=== PATIENT | female | born 1990 | race Caucasian/White ===

== ENCOUNTER → 2018-09-20 07:42 | Outpatient (CLI) | payer BC, SELFPAY ==
--- NOTE | 2018-09-20 07:45 | US_ITS ---
US abdomen complete HISTORY: Abdominal pain ITS.REASON: REFLUX,DHO ORDERING PHYSICIAN: Veronica Gomez APRN PATIENT AGE: 27 years COMPARISON: None FINDINGS: PANCREAS:Unremarkable. No obvious mass or abnormal fluid collection. No ductal dilatation LIVER:No focal liver lesions demonstrated. Homogeneous echogenicity. No intrahepatic biliary ductal dilatation evident RIGHT KIDNEY:Unremarkable. Normal size and echogenicity. No hydronephrosis LEFT KIDNEY:Unremarkable. No hydronephrosis. Normal size and echogenicity. GALLBLADDER:No gallstones, gallbladder wall thickening, pericholecystic fluid, or biliary dilatation. There is some layering sludge within the gallbladder. AORTA:No evidence of aneurysmal dilatation. SPLEEN:Unremarkable. Normal size and echogenicity ASCITES:None demonstrated. IMPRESSION: Layering sludge within the gallbladder of questionable clinical significance. No gallstones. Otherwise negative
== END ==
PROVIDERS: PCP Nurse Practitioner Family; Visit Provider Nurse Practitioner Family
DX: K21.9 Gastro-esophageal reflux disease without esophagitis (principal)
CPT/HCPCS: 76700

== ENCOUNTER 2018-09-28 10:32 | Day surgery (SDC) | payer BC, SELFPAY ==
[2018-09-25 12:43] VITALS: BMI 30.2
[2018-09-28 10:46] VITALS: BP 122/83; PULSE 83; RESP 18; TEMP 36.6; O2SAT 97
[2018-09-28 11:03] VITALS: O2SAT 98
--- NOTE | 2018-09-28 11:08 | HMH.ANESCL ---
[facility] Anesthesia Checklist - Patient Identification Patient Identification: Arm Band, Verbal (Name & ) - Structural Data Admitted From: Home Planned Operative Procedure/s: EGD Consent for Planned Operative Procedure(s) Verified: Yes Verified Documents: Surgical Consent, History and Physical - NPO Status Verified Time NPO: 00:00 - Additional verifications Anesthesia Reactions: No - Airway Assessment C-Spine Mobility Assessed: Yes TMJ Mobility Assessed: Yes Dentition: Partials - Neurological Assessment Level of Consciousness: Awake, Alert, Appropriate, Follows Commands Hx Seizures: No Numbness or tingling in extremities: No - Anesthesia Plan Anesthesia Risk discussed: Yes Anesthesia Plan: Verified ASA Class: II Anesthesia Type: MAC [facility] History I have reviewed the patient's past medical history: Yes Medical History: Reports:: Arrhythmia, Gastroesophageal Reflux Disease(GERD), Hypertension, Lung Disease (smoker) Denies:: Diabetes Mellitus Type 1, Diabetes Mellitus Type 2, Internal Pacemaker, Seizures *Have you ever received a pneumonia vaccine?: No (NA) *Have you received a flu vaccine this season?: No (NA) Other Medical History: Reports: Anemia Other Surgeries: Yes: Appendectomy, , Dilation and Curettage, Hysterectomy-Partial. No: Pacemaker Amputation: No Fractures: No - *Social History Smoking Status: Current every day smoker Tobacco Type: cigarettes Alcohol Intake: never *Occupational Status:: other (Unknown) *Travel in the last 8 weeks: None (Unknown) Family Hx:: Unable to obtain
--- NOTE | 2018-09-28 11:23 | HMH.PROC ---
[facility] Procedure Note Procedure Note:: Upper Endoscopy Procedure Report: Esophagogastroduodenoscopy with cold biopsies and TTS balloon dilation Endoscopost: Jose Sapp II, MD Referring Physician: LAKESHA Patel Date of Procedure: September 28, 2018 Equipment: Olympus GIF 180 standard upper endoscope Sedation: MAC sedation Indications: Mrs. Mulligan is a 27-year-old female who is here for diagnostic upper endoscopy. She has had long-standing dyspepsia with epigastric abdominal pain and discomfort. She reports heartburn and reflux. She has had bloating, nausea, early satiety and some belching. She does have occasional dysphagia and globus sensation. Often certain foods exacerbate her symptoms. She does have some bowel irregularity with constipation that alternates with diarrhea. She has had several upper endoscopies here at [facility] with other providers. The patient has had some coughing and chest tightness. She is a smoker. She did have appendectomy and 2012 and hysterectomy (partial) in 2016. The patient does take diclofenac p.o. twice daily, gabapentin and Effexor. Procedure: Prior to the procedure, a history and physical exam was performed, and patient's medications and allergies were reviewed. The risks, benefits and alternatives of the sedation and procedure were discussed with the patient. All questions were answered and informed consent was obtained. The patient was brought to the procedure room. Patient identification and proposed procedure were verified by the physician and the nurse. The patient was placed in a left lateral decubitus position and the scope was passed under direct vision. Throughout the procedure, the patient's blood pressure, pulse, and oxygen saturations were monitored continuously. The upper GI endoscopy was accomplished without difficulty. The patient tolerated the procedure well. Findings: The scope was passed directly into the upper esophagus and advanced to the third portion of the duodenum. The post bulbar duodenum and duodenal bulb were normal with normal mucosa and conniventes. The scope was withdrawn through a normal duodenal bulb and pylorus into the stomach. There was evidence of linear reactive gastropathy of the antrum and body of the stomach and biopsies were taken from the antrum. The remainder of the antrum, body and fundus of the stomach were grossly normal. Upon retroflexion there was no hiatal hernia. There was mild gastric atrophy of the fundus. 2 biopsies were taken in the fundus of the stomach. The scope was then withdrawn into the esophagus. There was no evidence of reflux esophagitis or Gonzalez's. There were tertiary contractions and mild esophageal dysmotility. The remainder of the esophageal mucosa was normal. Impression: 1. Nonerosive GERD with mild esophageal dysmotility 2. Mild linear reactive gastropathy and mild gastric atrophy Plan: I will follow up the biopsies. 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 I will discuss dietary measures and treatment options.
[2018-09-28 11:25] VITALS: BP 126/80; PULSE 80; RESP 16; TEMP 36.6; O2SAT 97
[2018-09-28 11:35] VITALS: BP 119/75; PULSE 84; RESP 16; O2SAT 98
[2018-09-28 11:45] VITALS: BP 122/77; PULSE 71; RESP 16; O2SAT 100
[2018-09-28 11:55] VITALS: BP 117/81; PULSE 71; RESP 16; O2SAT 100
== END 2018-09-28 12:00 | disposition home or self-care (01) ==
LOC: OUTP 10:32
PROVIDERS: PCP Nurse Practitioner Family; Visit Provider Internal Medicine Gastroenterology
PROC: 0DJ08ZZ Inspection of Upper Intestinal Tract, Via Natural or Artificial Opening Endoscopic (ICD-10-PCS; CPT 43235; principal; 2018-09-28 12:00)
DX: K21.9 Gastro-esophageal reflux disease without esophagitis; K31.9 Disease of stomach and duodenum, unspecified; K29.40 Chronic atrophic gastritis without bleeding; Z79.899 Other long term (current) drug therapy; Z72.0 Tobacco use
CPT/HCPCS: 43239; C1726

== ENCOUNTER → 2018-11-26 10:16 | Outpatient (POV) | payer BC, SELFPAY | PROVIDERS: PCP Nurse Practitioner Family; Visit Provider Nurse Practitioner Family | DX: Z00.00 Encounter for general adult medical examination without abnormal findings (principal) ==

== ENCOUNTER → 2018-12-10 13:29 | Outpatient (CLI) | payer BC, SELFPAY ==
--- NOTE | 2018-12-10 13:30 | US_ITS ---
US transvaginal HISTORY: ITS.REASON: PELVIC PAIN ORDERING PHYSICIAN: Freddy Allred MD PATIENT AGE: 28 years Comparison: None FINDINGS: Prior hysterectomy. The vaginal cuff has an unremarkable appearance. No fluid in the pelvis Right ovary is 2.8 x 1.9 cm and has an unremarkable appearance. Left ovary is 2.5 x 1.5 cm and also has an unremarkable appearance. IMPRESSION: Prior hysterectomy otherwise unremarkable pelvic ultrasound
== END ==
PROVIDERS: PCP Nurse Practitioner Family; Visit Provider Obstetrics & Gynecology
DX: R10.2 Pelvic and perineal pain (principal)
CPT/HCPCS: 76830

== ENCOUNTER → 2019-01-01 16:11 | Outpatient (CLI) | payer BC, SELFPAY ==
[2019-01-01 16:16] LABS: Microscopic, Urine URINE MICROSCOPIC (MICROSCOPIC)
[2019-01-01 16:35] LABS: Basophils % 0.3 % (0.1-2.0); Eosinophils # 0.2 K/mm3 (0.0-0.4); Eosinophils % 1.6 % (0.1-12.0); Hematocrit 38.2 % (37.0-47.0); Hemoglobin 12.3 g/dL (12.2-16.2); Lymphocytes # 3.5 K/mm3 (0.7-4.5); Lymphocytes % 27.6 % (10-50); Mean Corpuscular HGB Conc 32.2 g/dL (31.8-35.4); Mean Corpuscular Hemoglobin 28.2 pg (27.0-31.2); Mean Corpuscular Volume 87.5 fl (81-99); Mean Platelet Volume 7.9 fl (7.4-10.4); Monocytes # 0.5 K/mm3 (0.1-1.0); Monocytes % 3.9 % (1.7-9.3); Neutrophils # 8.6 K/mm3 (1.8-7.8); Neutrophils % 66.7 % (37.0-80.0); Platelet Count 291 K/mm3 (142-424); Red Blood Count 4.37 M/mm3 (4.20-5.40); Red Cell Distribution Width 12.5 % (11.5-17.5); White Blood Count 12.9 K/mm3 (4.8-10.8)
[2019-01-01 16:58] LABS: Appearance,Urine CLEAR (Clear); Bilirubin,Urine Negative (Negative); Blood, Urine Negative (Negative); Color,Urine YELLOW (Yellow); Glucose,Urine (UA) Negative (Negative); Ketones,Urine Negative (Negative); Leukocyte Esterase,Urine Negative (Negative); Nitrate,Urine Negative (Negative); Protein,Urine Negative (Negative); Urobilinogen,Urine 0.2 EU/dl (0.2)
[2019-01-01 18:16] LABS: Bacteria,Urine Trace /lpf; Squamous Epithelial Cell,Urine Occasional #/hpf (0-5); WBC,Urine Occasional #/hpf (0-3)
[2019-01-01 19:07] LABS: Alanine Aminotransferase 18 U/L (12-78); Albumin Level 3.5 gm/dL (3.4-5.0); Alkaline Phosphatase 83 U/L (46-116); Anion Gap 12.1 mEq/L (5-15); Aspartate Amino Transferase 12 U/L (15-37); Bilirubin,Total 0.2 mg/dL (0.2-1.0); Blood Urea Nitrogen 11 mg/dL (7-18); Calcium 8.6 mg/dL (8.5-10.1); Carbon Dioxide 30 mmol/L (21.0-32.0); Chloride 104 mmol/L (98-107); Creatinine,Serum 0.62 mg/dL (0.55-1.02); Estimated Glomerular Filt Rate 115 ml/min (>60); GFR (African American) 140 ML/MIN (>60); Globulin 3.5 gm/dl (1.3-3.2); Glucose 90 mg/dL (74-106); Potassium 4.1 mmoL/L (3.5-5.1); Sodium 142 mmol/L (136-145)
== END ==
PROVIDERS: Visit Provider Obstetrics & Gynecology
DX: Z01.818 Encounter for other preprocedural examination (principal); R10.2 Pelvic and perineal pain; N73.6 Female pelvic peritoneal adhesions (postinfective)
CPT/HCPCS: 36415; 80053; 81001; 85025

== ENCOUNTER → 2019-01-14 11:02 | Outpatient (POV) | payer BC, SELFPAY | PROVIDERS: PCP Nurse Practitioner Family; Visit Provider Nurse Practitioner Family | DX: Z00.00 Encounter for general adult medical examination without abnormal findings (principal) ==

== ENCOUNTER → 2020-07-23 14:01 | Outpatient (CLI) | payer BC, SELFPAY ==
--- NOTE | 2020-07-23 14:06 | US_ITS ---
APPROVED REPORT Exam Type: Ankle to Brachial Index Chemical Cell Changer: Audelia Billings RVT Indications Limb Pain: History of Smoking RLS Pressures/Indices Right Indices Left Indices Brachial 115.00 mmHg Brachial 113.00 mmHg Low Thigh 136.00 mmHg 1.18 Low Thigh 126.00 mmHg 1.10 Calf 130.00 mmHg 1.13 Calf 125.00 mmHg 1.09 Ankle(PT) 136.00 mmHg 1.18 Ankle(PT) 137.00 mmHg 1.19 Ankle(DP) 133.00 mmHg 1.16 Ankle(DP) 147.00 mmHg 1.28 Digit 132.00 mmHg 1.15 Digit 111.00 mmHg 0.97 Findings RT CARON=1.18 LT CARON=1.28 RT TPI=1.15 LT TPI=0.97 Conclusion RT CARON=1.18 LT CARON=1.28 RT TPI=1.15 LT TPI=0.97 No evidence significant arterial disease throughout the right and left lower extremities as evidenced by normal resting PVR waveforms and normal resting indices. Electronically signed by : Carlos Mcclellan MD 07/23/2020 15:52:26
== END ==
PROVIDERS: PCP Nurse Practitioner; Visit Provider Nurse Practitioner
DX: M79.672 Pain in left foot (principal); M79.671 Pain in right foot
CPT/HCPCS: 93923

== ENCOUNTER 2021-10-20 14:30 | Emergency (ER) | payer BC, SELFPAY ==
--- NOTE | 2021-10-20 15:03 | HMH.EDUTC ---
[facility] [place] Disposition Clinical Impression: Pharyngitis Qualifiers: Pharyngitis/tonsillitis etiology: unspecified etiology Qualified Code(s): J02.9 - Acute pharyngitis, unspecified Disposition: Home, Self-Care Condition on Discharge: Good Instructions: Strep Throat, DI for Strep Throat Additional Instructions: Drink plenty of fluids. Take tylenol or ibuprofen for pain or fever. Take the medications as directed. Follow up with your regular doctor. GO TO THE ER FOR ANY WORSENING SYMPTOMS Throw your tooth brush away and get a new one. Don't start the oral steroids until tomorrow, since you had the shot here today. Prescriptions: Amoxicillin [Amoxicillin 875MG Tab] 875 mg PO Q12H #20 tab Transmission Status: Received by [facility] Benzonatate [Benzonatate 100mg cap] 100 mg PO TIDP PRN #30 cap PRN Reason: Cough Transmission Status: Received by [facility] methylPREDNISolone [Medrol] 4 mg PO DIRECTED 6 Days #21 packet Transmission Status: Received by [facility] Referrals: Santa Sol APRN [Primary Care Provider] - Forms: Work/School Release Time of Disposition: 15:36 Medical Decision Making - Medical Records Medical records reviewed: No: I reviewed the patient's medical records. - Maninder Inquiry Pt receiving controlled substance: No Vital Signs: 10/20/21 15:28 10/20/21 15:47 Temperature 98.4 F 98.4 F Temperature Source Oral Pulse Rate 98 H Pulse Rate [Left Radial] 98 H Respiratory Rate 16 16 Blood Pressure 139/83 Blood Pressure [Right Arm] 139/83 Blood Pressure Mean [Right Arm] 101 02 Sat by Pulse Oximetry 96 - Lab Data Lab results reviewed: Yes: I reviewed the patient's lab results. Lab Results 10/20/21 15:06: Group A Strep Rapid Positive A Orders (Tests/Meds): ED MEDICATIONS Discontinued Medications Generic Name Dose Route Start Last Admin Trade Name Freq PRN Reason Stop Dose Admin Ceftriaxone Sodium 1 gm 10/20/21 15:27 10/20/21 15:43 Ceftriaxone 1gm Vial IM 10/20/21 15:28 1 gm ONCE ONE Administration Lidocaine HCl 0 ml 10/20/21 15:27 10/20/21 15:43 Lidocaine 1% 5ml Pf Vial IM 10/20/21 15:28 2 ml ONCE ONE Administration Methylprednisolone Sodium Succinate 125 mg 10/20/21 15:27 10/20/21 15:43 Methylprednisolone Sod Succ 125mg Vial IM 10/20/21 15:28 125 mg ONCE ONE Administration [facility] [place] HPI - General Stated complaint: fever,sore throat Time Seen by Provider: 10/20/21 15:03 - History of Present Illness Provider Complaint: She c/o sore throat for the past 2 days. - Related Data Home Medications Medication Instructions Recorded Confirmed aspirin 325 mg tablet,delayed ea PO 07/06/21 07/06/21 release cetirizine 10 mg tablet 10 mg PO DAILY PRN 07/06/21 07/06/21 clopidogrel 75 mg tablet 75 mg PO DAILY tab 07/06/21 07/06/21 psyllium husk 0.4 gram capsule 0.4 g PO .5 tabs day cap 07/06/21 07/06/21 topiramate 25 mg tablet 25 mg PO DAILY tab 07/06/21 07/06/21 ubrogepant 100 mg tablet 100 mg PO PRN tab 07/06/21 07/06/21 venlafaxine 75 mg capsule,extended 150 mg PO DAILY cap 07/06/21 07/06/21 release 24 hr Previous Rx's Medication Instructions Recorded Amoxicillin [Amoxicillin 875MG 875 mg PO Q12H #20 tab 10/20/21 Tab] Benzonatate [Benzonatate 100mg 100 mg PO TIDP PRN #30 cap 10/20/21 cap] methylPREDNISolone [Medrol] 4 mg PO DIRECTED 6 Days #21 10/20/21 packet Allergies Allergy/AdvReac Type Severity Reaction Status Date / Time brompheniramine Allergy Intermediate I-RASH Verified 10/20/21 15:30 [From Dimetapp DM Cold-Cough (PE)] dextromethorphan Allergy Intermediate I-RASH Verified 10/20/21 15:30 [From Dimetapp DM Cold-Cough (PE)] lemon [LEMON] Allergy Intermediate I-HIVES Verified 10/20/21 15:30 nitrofurantoin Allergy Intermediate I-HIVES Verified 10/20/21 15:30 [From Macrobid] phenylephrine Allergy Interm
[2021-10-20 15:28] VITALS: BP 139/83; PULSE 98; RESP 16; TEMP 36.9; O2SAT 96; BMI 26.6
[2021-10-20 15:47] VITALS: BP 139/83; PULSE 98; RESP 16; TEMP 36.9
[2021-10-20 15:49] LABS: Strep Scrn Group A (Rapid) Positive (Negative)
== END 2021-10-20 15:49 | disposition home or self-care (01) ==
PROVIDERS: Emergency Provider Nurse Practitioner Family; PCP Nurse Practitioner
DX: J02.9 Acute pharyngitis, unspecified (principal); R50.9 Fever, unspecified; Z79.899 Other long term (current) drug therapy
CPT/HCPCS: 87430; 96372; 99212; G0463; J0696

== ENCOUNTER 2022-08-30 19:22 | Emergency (ER) | payer BC, SELFPAY ==
[2022-08-30 19:24] VITALS: BP 109/63; PULSE 109; RESP 17; TEMP 38.4; O2SAT 98; BMI 26.2
[2022-08-30 19:55] LABS: Strep Scrn Group A (Rapid) Positive (Negative)
[2022-08-30 20:00] VITALS: BP 109/55; PULSE 109; O2SAT 97
--- NOTE | 2022-08-30 20:27 | HMH.EDGENADL ---
Discharge Plan Disposition Patient Disposition: Home, Self-Care Condition: Good Chief Complaint: Upper Respiratory Infection Prescriptions Prescriptions: No Action Ubrelvy 100 mg tablet 100 mg PO PRN topiramate 25 mg tablet 25 mg PO DAILY Label Comments: TAKE 1 TABLET BY MOUTH ONCE DAILY AT BEDTIME clopidogrel 75 mg tablet 75 mg PO DAILY Label Comments: TAKE 1 TABLET BY MOUTH ONCE DAILY aspirin 325 mg tablet,delayed release (DR/EC) PO Label Comments: TAKE 1 TABLET BY MOUTH ONCE DAILY cetirizine [24Hour Allergy] 10 mg tablet 10 mg PO DAILY PRN psyllium husk [Metamucil] 0.4 gram capsule 0.4 g PO .5 tabs day venlafaxine 75 mg capsule,extended release 24hr 150 mg PO DAILY amoxicillin 875 MG tablet 875 mg PO Q12H Qty: 20 0RF benzonatate 100 MG capsule 100 mg PO TIDP PRN (Reason: Cough) Qty: 30 0RF methylprednisolone 4 MG tablets,dose pack 4 mg PO DIRECTED 6 Days Qty: 21 0RF Referrals Follow up/Referrals: Santa Sol APRN [Primary Care Provider] - See instructions Activity Restrictions/Add. Instructions Additional Instructions/Restrictions: At this time was felt you are safe to be discharged home. If new or worsening symptoms please do not hesitate to return the emergency department. Clinical Impressions Clinical Impression: Strep pharyngitis Discharge ED Provider: Prachi Mercedes General Adult HPI General Chief complaint: Upper Respiratory Infection Stated complaint: sore throat Time Seen by Provider: 08/30/22 20:20 Mode of Arrival: Ambulatory Source of Information: Patient Limitations: No Limitations Description of Symptoms (Recalled from ER Triage Doc. by RN): 31 F presents from home with c/o sore throat and fever. Reports she woke up this AM with a scratchy throat. Throughout today it has gotten worse with pain while swallowing, redness, swelling, and increased fever. Last dose of Ibuprofen at 1820. History of Present Illness HPI narrative: Patient is a 31-year-old female with past medical history of previous tonsillectomy, previous multiple strep infections who presents emergency department for evaluation of sore throat, runny nose. Onset was acute, over the last 24 hours. Adequate p.o. intake and urine output. Symptoms refractory to ibuprofen at home. No other acute complaints at this time. Related Data Home Medications Medication Instructions Recorded Confirmed aspirin 325 mg tablet,delayed ea PO 07/06/21 07/06/21 release cetirizine 10 mg tablet (24Hour 10 mg PO DAILY PRN 07/06/21 07/06/21 Allergy) clopidogrel 75 mg tablet 75 mg PO DAILY 07/06/21 07/06/21 psyllium husk 0.4 gram capsule 0.4 g PO .5 tabs day 07/06/21 07/06/21 (Metamucil) topiramate 25 mg tablet 25 mg PO DAILY 07/06/21 07/06/21 ubrogepant 100 mg tablet (Ubrelvy) 100 mg PO PRN 07/06/21 07/06/21 venlafaxine 75 mg capsule,extended 150 mg PO DAILY Anxiety 07/06/21 07/06/21 release 24 hr Previous Rx's Medication Instructions Recorded amoxicillin 875 mg tablet 875 mg PO Q12H #20 tabs 10/20/21 benzonatate 100 mg capsule 100 mg PO TIDP PRN Cough #30 caps 10/20/21 methylprednisolone 4 mg tablets in 4 mg PO DIRECTED 6 days #21 10/20/21 a dose pack packets Allergies Allergy/AdvReac Type Severity Reaction Status Date / Time brompheniramine Allergy Intermediate I-RASH Verified 10/20/21 15:30 [From Dimetapp DM Cold-Cough (PE)] dextromethorphan Allergy Intermediate I-RASH Verified 10/20/21 15:30 [From Dimetapp DM Cold-Cough (PE)] lemon [LEMON] Allergy Intermediate I-HIVES Verified 10/20/21 15:30 nitrofurantoin Allergy Intermediate I-HIVES Verified 10/20/21 15:30 [From Macrobid] phenylephrine Allergy Intermediate I-RASH Verified 10/20/21 15:30 [From Dimetapp DM Cold-Cough (PE)] [facility] Disclaimer: The information contained in this section may have been updated after the patient was s
[2022-08-30 21:11] VITALS: BP 126/78; PULSE 90; RESP 20; TEMP 36.8; O2SAT 98
== END 2022-08-30 21:12 | disposition home or self-care (01) ==
PROVIDERS: Emergency Provider Student in an Organized Health Care Education/Training Program; PCP Nurse Practitioner
DX: J02.0 Streptococcal pharyngitis (principal); F17.210 Nicotine dependence, cigarettes, uncomplicated
CPT/HCPCS: 87430; 96372; 99283; 99284; J0561

== ENCOUNTER 2022-09-06 08:28 | Emergency (ER) | payer BC, SELFPAY ==
[2022-09-06 08:40] VITALS: BP 127/81; PULSE 87; RESP 20; TEMP 36.8; O2SAT 100; BMI 26.2
--- NOTE | 2022-09-06 08:49 | CT_ITS ---
FINAL REPORT TECHNIQUE: Axial images through the neck soft tissue was performed with IV contrast. Sagittal and coronal reformatted images were obtained and reviewed. This study was performed with techniques to keep radiation doses as low as reasonably achievable (ALARA). Individualized dose reduction techniques using automated exposure control or adjustment of mA and/or kV according to the patient's size were employed. CLINICAL HISTORY: swelling, difficulty swallowing - strep 1 week ago, sore throat, fever, chills FINDINGS: CT NECK WITH CONTRAST There is bilateral tonsillar enlargement, right greater than left most likely due to tonsillitis. There is mild edema and adenopathy in the peritonsillar regions. There is mild reactive adenopathy in the posterior triangles. Salivary glands are normal. Larynx is unremarkable. Thyroid gland is unremarkable. There is no abscess. IMPRESSION: Bilateral tonsillar enlargement with mild soft tissue edema, right greater than left and reactive adenopathy consistent with tonsillitis. No evidence of tonsillar abscess. Reviewed, Interpreted and Dictated by Fritz Trotter MD Transcribed by Fatuma Bui Authenticated and [facility]
[2022-09-06 08:54] LABS: Microscopic, Urine URINE MICROSCOPIC (MICROSCOPIC)
[2022-09-06 08:55] LABS: Appearance,Urine CLEAR (Clear); Bilirubin,Urine Negative (Negative); Blood, Urine Negative (Negative); Color,Urine YELLOW (Yellow); Glucose,Urine (UA) Negative (Negative); Ketones,Urine Negative (Negative); Leukocyte Esterase,Urine Negative (Negative); Nitrate,Urine Negative (Negative); PH,Urine 6.5 (5.0-8.5); Protein,Urine Negative (Negative); Specific Gravity, Urine <= 1.005 (1.005-1.030); Urobilinogen,Urine 0.2 EU/dl (0.2)
[2022-09-06 08:56] LABS: Coronavirus 19, PCR Not Detected (NotDetected); Influenza A, PCR Not Detected (NotDetected); Influenza B, PCR Not Detected (NotDetected)
[2022-09-06 09:00] VITALS: BP 116/72; PULSE 85; O2SAT 98
[2022-09-06 09:06] LABS: Squamous Epithelial Cell,Urine Occasional #/hpf (0-5)
[2022-09-06 09:18] LABS: Basophils % 0.2 % (0.1-2.0); Eosinophils % 0.3 % (0.1-12.0); Hematocrit 35.9 % (37.0-47.0); Hemoglobin 11.9 g/dL (12.2-16.2); Lymphocytes # 1.4 K/mm3 (0.7-4.5); Lymphocytes % 9.3 % (10-50); Mean Corpuscular HGB Conc 33.2 g/dL (31.8-35.4); Mean Corpuscular Hemoglobin 28.2 pg (27.0-31.2); Mean Corpuscular Volume 84.9 fl (81-99); Mean Platelet Volume 8.5 fl (7.4-10.4); Monocytes # 0.9 K/mm3 (0.1-1.0); Monocytes % 5.9 % (1.7-9.3); Neutrophils # 12.9 K/mm3 (1.8-7.8); Neutrophils % 84.3 % (37.0-80.0); Platelet Count 257 K/mm3 (142-424); Red Blood Count 4.22 M/mm3 (4.20-5.40); Red Cell Distribution Width 12.9 % (11.5-17.5); White Blood Count 15.3 K/mm3 (4.8-10.8)
[2022-09-06 09:20] LABS: Chloride 100 mmol/L (98-107); Potassium 3.4 mmoL/L (3.5-5.1); Sodium 139 mmol/L (136-145)
--- NOTE | 2022-09-06 09:21 | HMH.EDGENADL ---
Discharge Plan Disposition Patient Disposition: Home, Self-Care Condition: Good Prescriptions Prescriptions: New amoxicillin-pot clavulanate 875-125 mg tablet 1 tab PO BID Qty: 20 0RF No Action Ubrelvy 100 mg tablet 100 mg PO PRN topiramate 25 mg tablet 25 mg PO DAILY Label Comments: TAKE 1 TABLET BY MOUTH ONCE DAILY AT BEDTIME clopidogrel 75 mg tablet 75 mg PO DAILY Label Comments: TAKE 1 TABLET BY MOUTH ONCE DAILY aspirin 325 mg tablet,delayed release (DR/EC) PO Label Comments: TAKE 1 TABLET BY MOUTH ONCE DAILY cetirizine [24Hour Allergy] 10 mg tablet 10 mg PO DAILY PRN psyllium husk [Metamucil] 0.4 gram capsule 0.4 g PO .5 tabs day venlafaxine 75 mg capsule,extended release 24hr 150 mg PO DAILY amoxicillin 875 MG tablet 875 mg PO Q12H Qty: 20 0RF benzonatate 100 MG capsule 100 mg PO TIDP PRN (Reason: Cough) Qty: 30 0RF methylprednisolone 4 MG tablets,dose pack 4 mg PO DIRECTED 6 Days Qty: 21 0RF Referrals Follow up/Referrals: Santa Sol APRN [Primary Care Provider] - See instructions Activity Restrictions/Add. Instructions Additional Instructions/Restrictions: You were evaluated in the emergency department today. Please fiber picker your prescription and take the full course as prescribed. Follow-up with your primary care provider over the next 3 days. Take Tylenol and ibuprofen at home as needed for pain. Return to the emergency department for new or worsening symptoms. Clinical Impressions Clinical Impression: Pharyngitis Qualifiers: Pharyngitis/tonsillitis etiology: unspecified etiology Qualified Code(s): J02.9 - Acute pharyngitis, unspecified Stand Alone Forms Stand Alone Forms: Work/School Release Instructions Patient Instructions: DI for Pharyngitis/Tonsillopharyngitis -- Adult Discharge ED Provider: Irene Reddy General Adult HPI General Chief complaint: Upper Respiratory Infection Stated complaint: Sore throat, fever, bodyaches, chills Time Seen by Provider: 09/06/22 08:35 Mode of Arrival: Ambulatory Source of Information: Patient Limitations: No Limitations Description of Symptoms (Recalled from ER Triage Doc. by RN): pt to ed c/o cough, sore throat, aches/chills since yesterday. History of Present Illness HPI narrative: This patient is a 31-year-old female who denies significant past medical history presenting to the emergency department for evaluation with concern for sore throat and difficulty swallowing. She states that 1 week ago, she was diagnosed with strep pharyngitis. She states that she was given a penicillin shot and a dose of oral steroids. At this point, she notes that she was discharged home. Since going home, she says she has had worsening throat swelling, difficulty swallowing, and chills. She states that her throat has hurt much worse. She states that she is still able to tolerate swallowing liquids, but she feels like medications and solids get stuck in the back of her throat. This makes her nauseated. No other concerns noted at this time. Related Data Home Medications Medication Instructions Recorded Confirmed aspirin 325 mg tablet,delayed ea PO 07/06/21 07/06/21 release cetirizine 10 mg tablet (24Hour 10 mg PO DAILY PRN 07/06/21 07/06/21 Allergy) clopidogrel 75 mg tablet 75 mg PO DAILY 07/06/21 07/06/21 psyllium husk 0.4 gram capsule 0.4 g PO .5 tabs day 07/06/21 07/06/21 (Metamucil) topiramate 25 mg tablet 25 mg PO DAILY 07/06/21 07/06/21 ubrogepant 100 mg tablet (Ubrelvy) 100 mg PO PRN 07/06/21 07/06/21 venlafaxine 75 mg capsule,extended 150 mg PO DAILY Anxiety 07/06/21 07/06/21 release 24 hr Previous Rx's Medication Instructions Recorded amoxicillin 875 mg tablet 875 mg PO Q12H #20 tabs 10/20/21 benzonatate 100 mg capsule 100 mg PO TIDP PRN Cough #30 caps 10/20/21 methylprednisolone 4 mg tablets in 4 mg PO DIRECTED 6 days #21 10/20/21 a
[2022-09-06 09:22] LABS: Blood Urea Nitrogen 3 mg/dl (7-17); Creatinine Clearance Estimated 168 mL/min (50-200); Estimated Glomerular Filt Rate 145 ml/min (>60); GFR (African American) 175 ML/MIN (>60); MANUAL DIFFERENTIAL MANUAL DIFFERENTIAL (MANUAL DIFF)
[2022-09-06 09:23] LABS: Alanine Aminotransferase 21 U/L (12-78); Albumin Level 3.9 g/dl (3.5-5.0); Albumin/Globulin Ratio 1.3 (1.1-1.8); Alkaline Phosphatase 61 U/L (38-126); Anion Gap 14.4 mEq/L (5-15); Aspartate Amino Transferase 20 U/L (14-36); Bilirubin,Total 0.3 mg/dl (0.2-1.3); Calcium 8.3 mg/dl (8.4-10.2); Carbon Dioxide 28 mmol/L (22.0-30.0); Glucose 107 mg/dl (74-100); Total Protein,Serum 6.9 g/dl (6.3-8.2)
[2022-09-06 09:28] LABS: C-Reactive Protein 64.9 mg/L (0-4)
[2022-09-06 09:29] LABS: Lactic Acid 0.9 mmol/L (0.7-2.1)
[2022-09-06 09:30] VITALS: BP 109/67; PULSE 73; O2SAT 98
[2022-09-06 10:00] VITALS: BP 109/63; PULSE 81; O2SAT 99
[2022-09-06 10:04] LABS: HCG Qualitative, Serum Negative (Negative)
--- NOTE | 2022-09-06 10:04 | PC.NURSE ---
Strep swab sent to lab
[2022-09-06 10:07] LABS: Lymphocytes % 9 % (10-50); Monocytes % 6 % (2-9); Neutrophils % 85 % (42-76); Platelet Estimate Normal; RBC Morphology Normal; Total Cells Counted 100
[2022-09-06 10:15] LABS: Erythrocyte Sedimentation Rate 40 mm/hr (0-20)
[2022-09-06 10:35] LABS: Strep Scrn Group A (Rapid) Negative (Negative)
--- NOTE | 2022-09-06 10:46 | PC.NURSE ---
called rad for update on imaging. rad to sent prelim
[2022-09-06 12:33] VITALS: BP 120/73; PULSE 77; RESP 20; TEMP 36.8; O2SAT 100
== END 2022-09-06 12:34 | disposition home or self-care (01) ==
PROVIDERS: Emergency Provider Emergency Medicine; PCP Nurse Practitioner
DX: J02.9 Acute pharyngitis, unspecified (principal); R50.9 Fever, unspecified; R13.10 Dysphagia, unspecified
CPT/HCPCS: 70491; 80053; 81001; 83605; 84703; 85007; 85025; 85651; 86140; 87040; 87430; 96361; 96374; 96375; 99284; 99285; C9803; J2405; Q9967; U0003; U0005

== ENCOUNTER 2024-04-03 18:19 | Emergency (ER) | payer BC, SELFPAY ==
[2024-04-03 19:16] VITALS: BP 118/75; PULSE 71; RESP 16; TEMP 37; O2SAT 100; BMI 25.2
--- NOTE | 2024-04-03 19:20 | PC.NURSE ---
Left breast has no redness Pt states she has bilateral nipple pain for past few days and left breast very painful. No drainage or redness noted or reported
--- NOTE | 2024-04-03 19:56 | ED_ITS ---
Discharge Plan Disposition Patient Disposition: Home, Self-Care Chief Complaint: PAIN Prescriptions Prescriptions: No Action Ubrelvy 100 mg tablet 100 mg PO PRN topiramate 25 mg tablet 25 mg PO DAILY Patient Comments: TAKE 1 TABLET BY MOUTH ONCE DAILY AT BEDTIME clopidogrel 75 mg tablet 75 mg PO DAILY Patient Comments: TAKE 1 TABLET BY MOUTH ONCE DAILY aspirin 325 mg tablet,delayed release (DR/EC) PO Patient Comments: TAKE 1 TABLET BY MOUTH ONCE DAILY cetirizine [24Hour Allergy] 10 mg tablet 10 mg PO DAILY PRN psyllium husk [Metamucil] 0.4 gram capsule 0.4 g PO .5 tabs day amoxicillin-pot clavulanate 875-125 mg tablet 1 tab PO BID Qty: 20 0RF venlafaxine 75 mg capsule,extended release 24hr 150 mg PO DAILY amoxicillin 875 MG tablet 875 mg PO Q12H Qty: 20 0RF benzonatate 100 MG capsule 100 mg PO TIDP PRN (Reason: Cough) Qty: 30 0RF methylprednisolone 4 MG tablets,dose pack 4 mg PO DIRECTED 6 Days Qty: 21 0RF Referrals Follow up/Referrals: Irene Sadler APRN [Primary Care Provider] - See instructions Activity Restrictions/Add. Instructions Additional Instructions/Restrictions: Call your family doctor to establish care for this visit to the emergency department and schedule follow-up within 48 hours to ensure improvement. If you have any worsening of your condition or any other concerning signs or symptoms, return to the emergency department or your primary care doctor for further evaluation. Talk to your family doctor about repeat mammogram early next year in 2024 to reevaluate. Take Tylenol 1000 mg every 6 hours (4 times daily) and ibuprofen 400 mg every 6 hours (4 times daily) as needed with food and water to prevent GI upset and kidney damage. Clinical Impressions Clinical Impression: Breast mass, left Print Language Print Language: Sami Discharge ED Provider: Steve Bryan General Adult HPI General Chief complaint: PAIN Stated complaint: raised mass on side lbreast w/pain pain in nipples Time Seen by Provider: 04/03/24 18:29 Mode of Arrival: Ambulatory Source of Information: Patient Limitations: No Limitations Description of Symptoms (Recalled from ER Triage Doc. by RN): Pt states she has mass in left breast has had ultrasound and mammogram confirming mass. Given antibiotics that she finished Monday. Pain worse and mass bigger today History of Present Illness HPI narrative: Please note that above description of symptoms, in this electronic medical record under categorization of recalled from ER triage doctor by RN are reflective of an initial nursing assessment, however, is not reflective of my full history and physical exam that was personally taken and clarified. Consequentially, this preceding description of symptoms, which may include the patient's categorized chief complaint in the EMR, do not reflect my personal clinical impression, and the ultimate description of history of present illness and patient stated complaints should be deferred to this section of the note. Unless stated otherwise or congruent with this section of the note, additional signs, symptoms, or incongruence should be interpreted as inaccurate with my clinical impression. Related Data Home Medications ?Medication ?Instructions ?Recorded ?Confirmed aspirin 325 mg tablet,delayed ea PO 07/06/21 07/06/21 release cetirizine 10 mg tablet (24Hour 10 mg PO DAILY PRN 07/06/21 07/06/21 Allergy) clopidogrel 75 mg tablet 75 mg PO DAILY 07/06/21 07/06/21 psyllium husk 0.4 gram capsule 0.4 g PO .5 tabs day 07/06/21 07/06/21 (Metamucil) topiramate 25 mg tablet 25 mg PO DAILY 07/06/21 07/06/21 ubrogepant 100 mg tablet (Ubrelvy) 100 mg PO PRN 07/06/21 07/06/21 venlafaxine 75 mg capsule,extended 150 mg PO DAILY Anxiety 07/06/21 07/06/21 release 24 hr Previous Rx's ?Medication ?Instructions ?Recorded amoxicillin 875 mg tablet 875 mg PO Q12H #20 tabs 10/20/21 benzonatate 100 mg capsule 100 mg PO TIDP PRN Cough #30 caps 10/20/21 methylprednisolone 4 mg tablets in 4 mg PO DIRECTED 6 days #21 10/20/21 a dose pack packets amoxicillin 875 mg-potassium 1 tab PO BID #20 tabs 09/06/22 clavulanate 125 mg tablet Allergies Allergy/AdvReac Type Severity Reaction Status Date / Time brompheniramine (From Allergy Intermediate I-RASH Verified 10/20/21 15:30 Dimetapp DM Cold-Cough (PE)) dextromethorphan (From Allergy Intermediate I-RASH Verified 10/20/21 15:30 Dimetapp DM Cold-Cough (PE)) lemon (LEMON) Allergy Intermediate I-HIVES Verified 10/20/21 15:30 nitrofurantoin (From Allergy Intermediate I-HIVES Verified 10/20/21 15:30 Macrobid) phenylephrine (From Dimetapp Allergy Intermediate I-RASH Verified 10/20/21 15:30 DM Cold-Cough (PE)) [facility] Disclaimer: The information contained in this section may have been updated after the patient was seen, as this information can be updated by other users. Social History Smoking Status: Never smoker alcohol intake: never substance use type: denies use current occupational status: employed and other Travel in the last 8 weeks: None household members: children housing: house current occupation: [employer] current occupational exposures/hazards: No caffeine: Yes Other Medical History Have you received the Flu Vaccine for this season: No Have you received the Pneumonia Vaccine: No ROS Obtained: Yes All systems reviewed & no additional complaints except as documented Physical Exam General General appearance: alert Head Head exam: atraumatic and normocephalic Eye Eye exam: Present normal appearance, PERRL and EOMI Neck Neck exam: Present normal inspection, full ROM and trachea midline Chest Chest inspection: Present other (Firm, mobile tissue mass left upper outer breast around 3 o'clock position. Moderately tender. No overlying skin changes. No nipple discharge. No lymphadenopathy ) Respiratory Respiratory exam: Absent respiratory distress, wheezes, stridor, accessory muscle use or prolonged expiratory phase Cardiovascular Cardiovascular exam: Present other (Pulses equal symmetric in upper and lower extremities) Abdominal Exam Abdominal exam: Present soft; Absent distention, tenderness or pulsatile mass Extremities Exam Extremities exam: Absent edema Neurological Exam Neurological exam: Present alert, oriented X3 and CN II-XII intact; Absent motor sensory deficit Skin Skin exam: Present warm and dry; Absent diaphoresis or erythema Medical Decision Making Medical Records Medical records reviewed: Yes I reviewed the patient's medical records. Screening: Per USPSTF and CDC recommendations, given the prevalence of disease in our region, it is our hospital?s policy to screen for HIV and viral Hepatitis for all patients aged 18 and over and those with ongoing risk factors. Maninder Inquiry Pt receiving controlled substance: No Maninder was queried for this patient: No Vital Signs: 04/03/24 19:16 Temperature 98.6 F Temperature Source Oral Pulse Rate [Right Brachial] 71 Respiratory Rate 16 Blood Pressure [Right Arm] 118/75 Blood Pressure Mean [Right Arm] 89 Blood Pressure Source [Right Arm] Automatic Cuff Blood Pressure Position [Right Arm] Sitting 02 Sat by Pulse Oximetry 100 Oxygen Delivery Method Room Air Orders (Tests/Meds): ED MEDICATIONS Discontinued Medications Generic Name Dose Route Start Last Admin Trade Name Bayron PRN Reason Stop Dose Admin Ketorolac Tromethamine 15 mg 04/03/24 19:56 04/03/24 20:31 Ketorolac 30mg/Ml Vial IM 04/03/24 19:57 15 mg ONCE ONE Administration ORDERS Category Date Time Status POCUS Point of Care (ER Only) Stat Exams 04/03/24 19:29 Completed Medical Decision Narrative: This is a 33-year-old female presenting with breast mass. Patient states this has been going on for weeks. States that she was seen in outside facility where she had ultrasound and mammogram done. Ultrasound was read as mass, allegedly and the mammogram was read as normal. Patient coming in today after having been on antibiotic for 7 days which ended about 4 days prior to this and still having symptoms.. No fevers, chills, overlying skin changes, swelling in her armpit, chest pain, cough, or any other concerns. History obtained the patient. On arrival, very well-appearing. Waxer Operator used during exam. Patient has 3 cm tender, mobile mass on the left breast at about the 3 o'clock position. No lymphadenopathy associated. Overlying skin changes, redness, nipple discharge, etc. Differential includes fibrocystic change, ectatic ducts, abscess, lactocele, malignancy, among others. Bedside axzcy-hy-ydio ultrasound was performed. Appears to be fibrocystic change versus ectatic ducts. Patient given Toradol for pain. Outside records were obtained from [facility] and mammography without suspicious findings, ultrasound also confirming likely benign mass. Because of this, I feel patient is appropriate for outpatient management with family physician for repeat mammogram in 6 months. Because patient at baseline without signs or symptoms of clinical decompensation, deemed appropriate for discharge. Results were relayed to patient who voiced understanding and were agreeable to outpatient management and follow up. I discussed my clinical impression with patient and answered all questions. At this time, the evidence for any other entities in the differential is insufficient to warrant any further testing or ED observation. This was explained as well. Advisory was given that persistent or worsening symptoms require further evaluation. I confirmed the understanding of this discussion. Real Estate Lawyer disclaimer Much of this encounter note is an electronic sales office coordinator spoken language to printed text. Electronic sales office coordinator of the spoken language may permit errors. Although I have reviewed the note, some errors may still exist. Procedures Limited Ultrasound Indication:: Limited soft tissue ultrasound Indication: Breast mass and pain Identified structures: Location: Left breast Findings: fibrocystic change versus ectatic ducts Impression: Fibrocystic change versus ectatic ducts. No evidence of cellulitis, abscess. Images were saved to permanent archive The study was technically adequate Soft Tissue CPT Codes: CPT Neck: 49497-57 CPT Upper extremity: 12885-25 CPT Axilla: 18240-36 CPT Chest wall: 68078-10 CPT Breast: 68674-35-EI/LT (complete), 31132-34-NI/LT (limited), CPT Upper Back: 79436-19 CPT Lower Back: 02820-86 CPT Abdominal Wall: 57884-65 CPT Pelvic Wall: 47443-12 CPT Lower Extremity: 19501-28 CPT Other Soft Tissue: 32049-19 This study was performed by me, and I personally interpreted all images/videos. Based on my clinical judgement, these images were adequate and did not necessitate further imaging. Critical Care Critical Care Time Critical Care Time: No
--- NOTE | 2024-04-03 20:15 | PC.NURSE ---
call to [facility] for jus and us reports
[2024-04-03] MEDS: KETOROLAC 30MG/ML VIAL 15 MG IM (20:31)
[2024-04-03 21:39] VITALS: BP 110/82; PULSE 69; RESP 16; TEMP 36.8; O2SAT 99
== END 2024-04-03 21:42 | disposition home or self-care (01) ==
PROVIDERS: Emergency Provider Emergency Medicine; PCP Nurse Practitioner Family
DX: N63.21 Unspecified lump in the left breast, upper outer quadrant (principal)
CPT/HCPCS: 96372; 99283; J1885